=== PATIENT | female | born 2000 | race Two or more races ===

== ENCOUNTER 2021-10-12 00:11 | Emergency (ER) | payer OTHER ==
[~2021-10-12] VITALS: Ht 157.5 cm; Wt 53.1 kg
[2021-10-12] MEDS ORDERED: FOLIC ACID0.8 M1 (00:24)
[2021-10-12] MEDS ORDERED: PRENATAL TABLE1 EAC3 (00:24)
[2021-10-12] MEDS ORDERED: CEPHALEXIN500 MG PO (05:04)
== END 2021-10-12 05:12 ==
LOC: ER 00:11
DX: O23.42 Unspecified infection of urinary tract in pregnancy, second trimester (principal); N39.0 Urinary tract infection, site not specified; Z3A.20 20 weeks gestation of pregnancy; Z37.0 Single live birth; R10.9 Unspecified abdominal pain